=== PATIENT | female | born 1945 | race Caucasian/White ===

== ENCOUNTER 2021-04-18 11:33 | Emergency (ER) | payer MEDICARE, SELFPAY ==
[2021-04-18 11:34] VITALS: BP 125/80; PULSE 83; RESP 15; TEMP 36.3; O2SAT 98; BMI 17.9
[2021-04-18] MEDS: LORazepam 2 MG/ML Syringe 0.5 MG IV (12:32)
[2021-04-18] MEDS: Ondansetron 4 MG/2 ML Vial IV (12:32)
[2021-04-18] MEDS: 0.9% Normal Saline 1,000 ML 1000 ML IV (12:32)
[2021-04-18 12:42] LABS: Absolute Lymphocyte Count 0.17 X10^3/uL (0.83-4.51); Absolute Neutrophil Count 13.4 X10^3/uL (2.0-7.7); Basophil# 0.03 X10^3/uL; Basophil% 0.2 % (0-1); Hematocrit 46.8 % (37-47); Hemoglobin 15.5 g/dL (12.0-15.0); Lymphocyte # 0.17 X10^3/ul (0.83-4.51); Lymphocyte % 1.2 % (19-41); Mean Corp Hgb Conc 33.1 g/dL (32-36); Mean Corpuscular Hgb 29.3 pg (27.0-32.0); Mean Corpuscular Volume 88.5 fL (81-99); Mean Platelet Vol. 10.3 fl (6.2-12.0); Monocyte# 0.37 X10^3/uL; Monocyte% 2.6 % (0-10); NRBC Flagged by Analyzer 0 % (0-5); Neutrophil # 13.41 X10^3/uL (2.7-7.7); Neutrophil % 94.9 % (47-70); POSITIVE DIFFERENTIAL YES; Platelet Count 265 K/mm3 (150-450); RBC Distribution Width CV 12.9 % (11.6-14.6); RBC Distribution Width SD 41.7 fl (35.1-43.9); Red Blood Count 5.29 M/mm3 (4.2-5.4); White Blood Count 14.1 K/mm3 (4.4-11.0)
[2021-04-18 12:48] LABS: Differential Indicated SCAN CRITERIA MET
[2021-04-18 12:57] LABS: Anion Gap 9 (5-15); BUN 19 mg/dL (7-18); BUN/Creat Ratio 28.6 RATIO (10-20); Calcium,Total 9.3 mg/dL (8.5-10.1); Chloride 101 mmol/L (98-107); Creatinine, Serum 0.66 mg/dL (0.55-1.02); EST Glomerular Filtration Rate 92 mL/min (>60); Est Glom Filt Rate - Afr Amer 111 mL/min (>60); Estimated Creatinine Clearance 33.06 ml/min; Glucose 198 mg/dL (74-106); Potassium 3.5 mmol/L (3.5-5.1); Sodium Level 136 mmol/L (136-145)
--- NOTE | 2021-04-18 13:05 | EDS_ITS ---
HPI History of Present Illness Chief Complaint: Nausea/Vomiting Informant: patient Onset/Context/Timing Onset: Yesterday Context: Sudden Onset Timing: Continuous Quality: Hematemesis Location: Chest Worsened by: Nothing Relieved by: Nothing Narrative Narrative: Patient presents with nausea and vomiting that began yesterday. Patient had gamma knife procedure done yesterday on the left side of her brain. 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 Patient has had 5 doses of radiation on her lung cancer. Patient states she has been having some intermittent hematemesis. Patient states nothing makes her nausea or vomiting better nothing makes it worse. Patient does admit to some shortness of breath and cough which is chronic for her. [facility] Medical History Lung cancer metastatic to brain Status post gamma knife treatment Home Medications albuterol 1 mcg INHALATION Q6H 04/18/21 [History Last Taken Unknown] cannabidiol mg 04/18/21 [History Last Taken Unknown] cholecalciferol (vitamin D3) [Vitamin D3] 50 mcg PO DAILY 04/18/21 [History Last Taken Unknown] docusate sodium [Colace] 100 mg PO DAILY 04/18/21 [History Last Taken Unknown] [id number] [Trelegy Ellipta] 1 inh INHALATION DAILY 04/18/21 [History Last Taken Unknown] omeprazole 20 mg PO DAILY 04/18/21 [History Last Taken Unknown] ondansetron 4 mg PO Q8H PRN PRN #10 tab 04/18/21 [Rx Last Taken Unknown] prednisone 10 mg PO DAILY 04/18/21 [History Last Taken Unknown] vitamin C45-uauze acid 2 tab PO DAILY 04/18/21 [History Last Taken Unknown] Allergy/AdvReac Type Severity Reaction Status Date / Time CITIRZINE HYDROCLORIDE Allergy NEEDS Uncoded 04/18/21 11:38 FOLLOW-UP Surgical History H/O hernia repair H/O: hysterectomy Social History Smoking Status: Current every day smoker tobacco type: cigarettes ROS ROS ED Constitutional Constitutional ED: Denies chills or fever(s) Eyes Eyes: Denies blurry vision or change in vision ENT ENT ED: Denies rhinorrhea or sore throat Cardiovascular Cardiovascular: Denies chest pain or palpitations Respiratory/Chest Respiratory/Chest: Reports cough and dyspnea Gastrointestinal Gastrointestinal: Reports abdominal pain, nausea and vomiting Genitourinary Genitourinary ED: Denies dysuria or hematuria Musculoskeletal Musculoskeletal: Reports neck pain; Denies back pain Integumentary Denies abscess or rash Neurologic Neurologic: Reports headache(s) and weakness Allergic/Immunologic Allergic/Immunologic ED: Denies mouth swelling or urticaria EXAM Physical Exam Const Vital Signs: 04/18/21 11:34 04/18/21 14:30 04/18/21 14:34 Temperature 97.3 F L Temperature Source Temporal Pulse Rate 83 88 Respiratory Rate 15 16 Blood Pressure 125/80 H 129/81 H Blood Pressure Mean 95 97 Pulse Ox 98 88 92 Oxygen Delivery Method Room Air Room Air Nasal Cannula Oxygen Flow Rate (L/min) 2 Positive well nourished and well developed General Appearance ED: well developed HEENT Reports moist mucous membranes Neck supple and no JVD Resp normal respiratory effort and clear to auscultation bilaterally Cardio regular rate and regular rhythm GI normal to inspection, nondistended, normoactive bowel sounds Palpation: soft and tender epigastric, LLQ, RLQ, LUQ, RUQ, periumbilical and suprapubic; Negative for guarding or rebound tenderness present Extremity normal to inspection General Extremety ED: Negative for edema or tenderness General Extremity: Negative for edema Neuro oriented x3, CN's II-XII intact bilaterally and no sensory deficits noted Sensorium / Orientation: alert Motor Exam: strength 5/5 throughout Psych mental status grossly normal Skin no rashes or lesions noted MDM MDM MDM Narrative Medical decision making narrative: Patient was given IV fluids, Zofran, and Ativan. CBC shows a mild leukocytosis of 14.1. This is most likely related to her recent treatment. Basic metabolic profile was essentially within normal limits. Urinalysis does not show any evidence of urinary tract infection. CT scan of the abdomen pelvis was obtained. There is no acute intra-abdominal abnormality. There is a small right pleural effusion noted. There is a infrarenal aortic aneurysm but there is no rupture or leakage. There is a 2.6 x 1.9 cm nodule in the left adrenal gland. Metastatic deposit should be ruled out. This was interpreted by the radiologist and reviewed by myself. Patient was advised to follow-up with her primary care physician and oncologist in 3 to 5 days. Patient was given a prescription for Zofran. Patient was instructed to return if worse in any way. Patient and family understood and were agreeable with the plan. All questions were answered. Lab Data Attestation: I reviewed the patient's lab results. Labs: Laboratory Results - last 24 hr 04/18/21 04/18/21 04/18/21 12:35 12:35 15:23 WBC 14.1 H RBC 5.29 Hgb 15.5 H Hct 46.8 MCV 88.5 MCH 29.3 MCHC 33.1 RDW Std Deviation 41.7 RDW Coeff of Jane 12.9 Plt Count 265 MPV 10.3 Immature Gran % (Auto) 1.100 H Neut % (Auto) 94.9 H Lymph % (Auto) 1.2 L Boyle % (Auto) 2.6 Eos % (Auto) 0.0 Baso % (Auto) 0.2 Absolute Neuts (auto) 13.4 H Absolute Lymphs (auto) 0.17 L Nucleated RBC % 0 Sodium 136 Potassium 3.5 Chloride 101 Carbon Dioxide 26.0 Anion Gap 9 BUN 19 H Creatinine 0.66 Estim Creat Clear Calc 33.06 Est GFR (MDRD) Af Amer 111 Est GFR (MDRD) Non-Af 92 BUN/Creatinine Ratio 28.6 H Glucose 198 H Calcium 9.3 Urine Color Straw Urine Clarity Clear Urine pH 8.0 Ur Specific Atkinson 1.015 Urine Protein Negative Urine Glucose (UA) 100 H Urine Ketones Negative Urine Occult Blood Negative Urine Nitrite Negative Urine Bilirubin Negative Urine Urobilinogen Normal Ur Leukocyte Esterase Negative Urine RBC 0 SEEN Urine WBC 0 SEEN Ur Squamous Epith Cells 0 SEEN Urine Bacteria 0 SEEN Urine Mucus 0 SEEN Radiography Diagnostic Testing: Radiology Impression Abdomen/Pelvis CT 04/18/21 13:45 IMPRESSION: Small right pleural effusion with atelectasis at the lung bases more prominent on the right side. Tortuous and aneurysmally dilated infrarenal abdominal aorta with a transverse dimension of 5.4 cm. 2.6 cm x 1.9 cm solid nodule in the left adrenal gland. A metastatic deposit should be ruled out. Electronically Signed: Kennedy Bhardwaj MD at 14:21 EDT , Service support , Discharge Plan Triage Chief Complaint: Nausea/Vomiting ED Provider: Carlos Cruz Dx/Rx/DC Orders Clinical Impression: Nausea and vomiting Instructions: ED Vomiting (Adult) Prescriptions: New ondansetron [ondansetron] 4 MG tablet 4 mg PO Q8H PRN PRN (Reason: Nausea) Qty: 10 RF: 0 No Action prednisone 10 mg Tablet 10 mg PO DAILY RF: 0 docusate sodium [Colace] 100 mg Capsule 100 mg PO DAILY RF: 0 omeprazole 20 mg Capsule,Delayed Release(Dr/Ec) 20 mg PO DAILY RF: 0 albuterol 90 mcg/actuation Aerosol 1 mcg INHALATION Q6H RF: 0 cholecalciferol (vitamin D3) [Vitamin D3] 50 mcg (2,000 unit) Tablet 50 mcg PO DAILY RF: 0 vitamin Y57-zcaig acid 500-400 mcg Tablet 2 tab PO DAILY RF: 0 Trelegy Ellipta 100-62.5-25 mcg Blister With Device 1 inh INHALATION DAILY RF: 0 cannabidiol 100 mg/mL Solution RF: 0 Activity Restrictions/Additional Instructions: Follow-up with your primary care physician and oncologist in 3 to 5 days or as scheduled. Disposition Disposition: Home, self care
--- NOTE | 2021-04-18 13:45 | CT_ITS ---
STUDY: CT ABDOMEN AND PELVIS WITHOUT CONTRAST REASON FOR EXAM: Female, 75 years old. Status post recent radiation gamma knife to the left side of the brain. The patient presents with history of vomiting. The patient has history of lung cancer with brain metastasis. RADIATION DOSAGE (If Supplied By Facility): CTDIvol = ( 6.04 ) mGy, DLP = ( 255.17 ) mGycm TECHNIQUE: Transaxial images were obtained from the dome of the diaphragm to the symphysis pubis without oral contrast, and without intravenous contrast. Sagittal and coronal images were reconstructed. Individualized dose optimization techniques were used for this CT. COMPARISON: None. FINDINGS: Small right pleural effusion with increased markings at the right lung base suggestive of atelectasis. Minimal increased markings at the left lung base. Coronary artery calcification. Normal liver. Normal gallbladder and extrahepatic biliary system. Normal spleen. Normal pancreas. There is a 2.6 cm x 1.9 cm solid nodule in the left adrenal gland. With the patient''s history of lung cancer, a metastatic deposit should be ruled out. I suspect a 1 cm cyst in the lower pole of the right kidney. There is a 1 JUAN cyst in the anterior midportion of the left kidney. Normal visualized stomach. Normal small intestine. There are multiple colonic diverticula consistent with diverticulosis. There is non-visualization of the appendix. There is diffuse atherosclerotic calcification of the abdominal aorta. There is tortuosity of the infrarenal abdominal aorta with a fusiform infrarenal abdominal aortic aneurysm with a transverse dimension of 5.4 cm. This extends to the aortic bifurcation. There is no dilatation of the common iliac arteries bilaterally with calcification.Normal inferior vena cava. Normal retroperitoneum. Normal urinary bladder. There is absence of the uterus consistent with a prior hysterectomy. Normal abdominal wall. Disc space narrowing and degeneration at the L5-S1 level. CT/Abdomen/Pelvis without Cont IMPRESSION: Small right pleural effusion with atelectasis at the lung bases more prominent on the right side. Tortuous and aneurysmally dilated infrarenal abdominal aorta with a transverse dimension of 5.4 cm. 2.6 cm x 1.9 cm solid nodule in the left adrenal gland. A metastatic deposit should be ruled out. Electronically Signed: Kennedy Bhardwaj MD at 14:21 EDT , Service support ,
[2021-04-18 14:30] VITALS: BP 129/81; PULSE 88; RESP 16; O2SAT 88
[2021-04-18 14:34] VITALS: O2SAT 92
[2021-04-18 15:25] LABS: Bacteria 0 SEEN /hpf (None Seen); Mucous, Urine 0 SEEN /hpf (<or=2+); Red Blood Cells-Urine 0 SEEN /hpf (0-5); Squamous Epithelial Cells - UA 0 SEEN /hpf (5-10); White Blood Cells 0 SEEN /hpf (0-5)
[2021-04-18 15:28] LABS: Color, Urine Straw (Yellow); Glucose, Dipstick 100 mg/dl (Normal); Ketone-Dipstick Negative (Negative); Leukocyte Esterase-Dipstick Negative /ul (Negative); Nitrite-Dipstick Negative (Negative); Occult Blood-Urine Negative /ul (Negative); Protein-Dipstick Negative (Negative); Specific Gravity, Urine 1.015 (1.002-1.030); Urine Bilirubin Dipstick Negative (Negative); Urine Clarity Clear (Clear); Urine Urobilinogen Normal (Normal)
[2021-04-18 16:29] VITALS: BP 141/82; RESP 16; O2SAT 98
== END 2021-04-18 16:29 | disposition home or self-care (01) ==
PROVIDERS: Emergency Provider Emergency Medicine
DX: R11.2 Nausea with vomiting, unspecified (principal); C34.90 Malignant neoplasm of unspecified part of unspecified bronchus or lung; C79.31 Secondary malignant neoplasm of brain; C78.89 Secondary malignant neoplasm of other digestive organs; J90 Pleural effusion, not elsewhere classified; Z79.52 Long term (current) use of systemic steroids; Z79.899 Other long term (current) drug therapy; F17.210 Nicotine dependence, cigarettes, uncomplicated
CPT/HCPCS: 74176; 80048; 81001; 85025; 96361; 96374; 96375; 99283; J7030; A4216; J2405